=== PATIENT | male | born 1975 | race Two or more races ===

== ENCOUNTER 2024-09-23 17:53 | Emergency (ER) | payer MEDICAID ==
[~2024-09-23] VITALS: Ht 170.2 cm; Wt 99.5 kg
[2024-09-23 18:05] VITALS: BP 160/98; PULSE 122; RESP 14; O2SAT 98
[2024-09-24] MEDS ORDERED: CEPH500C PO (00:06)
[2024-09-24] MEDS ORDERED: ACET500T58 PO (00:06)
== END 2024-09-23 19:28 | disposition left against medical advice (07) ==
LOC: ER 17:53
DX: N48.89 Other specified disorders of penis (principal); Z53.21 Procedure and treatment not carried out due to patient leaving prior to being seen by health care provider

== ENCOUNTER 2024-09-23 22:32 | Emergency (ER) | payer MEDICAID ==
[~2024-09-23] VITALS: Ht 167.6 cm; Wt 98.5 kg
[2024-09-23 22:50] VITALS: BP 179/105; PULSE 85; RESP 18; O2SAT 98
[2024-09-23 23:17] LABS: Urine Bacteria None Seen /hpf (None Seen)
[2024-09-23 23:32] LABS: Urine Blood Negative /uL (Negative); Urine Clarity Clear (Clear); Urine Color Light-Yellow (Yellow); Urine Protein, UAD TRACE (Negative); Urine Specific Gravity 1.025 (1.001-1.035); Urine Squamous Epithelial Cell FEW /hpf (<5); Urine Urobilinogen Normal (Negative); Urine WBC 2 /HPF (0-3); Urine pH 5.5 (5.0-9.0)
[2024-09-24] MEDS ORDERED: ACET500T58 PO (00:06)
[2024-09-24] MEDS ORDERED: CEPH500C PO (00:06)
--- NOTE | 2024-09-24 00:06 | ED.PDOC ---
General HPI Comments 49-YEAR-OLD MALE PRESENTS TO ER WITH PENILE COMPLAINT X1 DAY. PATIENT REPORTS THAT HE IS UNCIRCUMCISED AND X1 DAY HE HAS BEEN EXPERIENCING REDNESS AND 10/10 BURNING/ITCHING TO PENIS AND FORESKIN. DENIES USE OF MEDICATIONS FOR CURRENT SYMPTOMS. STATES HE HAS NOT BEEN SEXUALLY ACTIVE IN 2 YEARS, DENYING ANY EXPOSURE TO STDS. DENIES FEVER, BODY ACHES, CHILLS, FURTHER SKIN CHANGES, BACK PAIN/FLANK PAIN, PENILE DISCHARGE, CHANGES IN URINATION OR ANY FURTHER SYMPTOMS/COMPLAINTS Chief Complaint: Penile Discharge Time Seen by MD: 22:58 Primary Care Provider: UNKNOWN Reviewed notes: Nurses Notes, Medications, Allergies Allergies: Coded Allergies: NO KNOWN ALLERGIES (Unverified , 09/23/24) Home Meds Active Scripts Cephalexin Monohydrate (Cephalexin) 500 Mg Cap, 1 CAP PO BID for 7 Days, #14 CAP 0 Refills Prov:MEHNAZ REEVES 09/24/24 Acetaminophen (Acetaminophen) 500 Mg Tab, 500 MG PO Q4HPRN, #30 TAB 0 Refills Prov:MEHNAZ REEVES 09/24/24 Information Source: Patient Mode of Arrival: Ambulatory Past Medical History PAST MEDICAL HISTORY: Denies Surgical History: Hernia Repair Family History Family History: Unknown Social History Smoker: Non-Smoker Alcohol: Occasionally Drugs: Denies Drug Use Lives In: Home Constitutional: denies: chills, diaphoresis, fatigue, fever, malaise, sweats, weakness, others EENTM: denies: blurred vision, double vision, ear bleeding, ear discharge, ear drainage, ear pain, ear ringing, eye pain, eye redness, hearing loss, mouth pain, mouth swelling, nasal discharge, nose bleeding, nose congestion, nose pain , photophobia, tearing, throat pain, throat swelling, voice changes, others Respiratory: denies: cough, hemoptysis, orthopnea, SOB at rest, shortness of breath, SOB with excertion, stridor, wheezing, others Cardiovascular: denies: chest pain, dizzy spells, diaphoresis, Dyspnea on exertion, edema, irregular heart beat, left arm pain, lightheadedness, palpitations, PND, syncope, others Gastrointestinal: denies: abdomen distended, abdominal pain, blood streaked bowels, constipated, diarrhea, dysphagia, difficulty swallowing, hematemesis, melena, nausea, poor appetite, poor fluid intake, rectal bleeding, rectal pain, vomiting, others Genitourinary: reports: others ( STATED IN HPI) Neurological: denies: dizziness, fainting, headache, left sided numbness, left sided weakness, numbness, paresthesia, pre-existing deficit, right sided numbness, right sided weakness, seizure, speech problems, tingling, tremors, weakness, others Musculoskeletal: denies: back pain, gout, joint pain, joint swelling, muscle pain, muscle stiffness, neck pain, others Integumetry: reports: others ( STATED IN HPI) Allergic/Immunocompromised: denies: Difficulty Healing, Frequent Infections, Hives, Itching, others Hematologic/Lymphatic: denies: anemia, blood clots, easy bleeding, easy bruising, swollen glands, others Endocrine: denies: excessive hunger, excessive sweating, excessive thirst, excessive urination, flushing, intolerance to cold, intolerance to heat, unexplained weight gain, unexplained weight loss, others Psychiatric: denies: anxiety, bipolar disorder, depression, hopeless, panic disorder, schizophrenia, sleepless, suicidal, others Physical Exam General Appearance: No Apparent Distress, Obese HEENT: PERRL/EOMI Neck: Full Range of Motion, Non-Tender, Normal Respiratory: Chest Non-Tender, Lungs Clear, No Accessory Muscle Use, No Respiratory Distress, Normal Breath Sounds Cardiovascular: No Murmur, No Gallop, Regular Rate/Rhythm Breast Exam: Deferred Gastrointestinal: Non Tender, No Pulsatile Mass, Soft Genitalia: Other (PATIENT UNCIRCUMCISED- MILD ERYTHEMA/TTP/MINIMAL SWELLING NOTED SURROUNDING FORESKIN AND GLANS PENIS. NO FURTHER SKIN CHANGES NOTED. REMAINDER OF GENITALIA EXAMINATION-UNREMARKABLE) Pelvic: Deferred Rectal: Deferred Extremities: Normal capillary refill, Normal range of motion Neurologic: Alert, No Motor Deficits, Normal Affect, Normal Mood, No Sensory Deficits Cerebellar Function: Normal Reflexes: Normal Skin: Dry, Warm Lymphatic: No Adenopathy Was a procedure done? Was a procedure done?: No Sedation Sedation?: No Differential Diagnosis Kidney stone (Female): N/A Penile/Scrotal: UTI, Urinary Retention Urinary Problem (Male): Urethritis, Urinary Retention X-Ray, Labs, Meds, VS Vital Signs Date Time Temp Pulse Resp B/P (MAP) Pulse Ox O2 Delivery O2 Flow Rate FiO2 2/3/25 22:50 97.0 85 18 179/105 (129) 98 Lab Test 09/23/24 22:54 Range/Units Urine Color Light-yellow Yellow Urine Clarity Clear Clear Urine pH 5.5 5.0-9.0 Urine Specific [place] 1.025 1.001-1.035 Urine Protein Trace H Negative Urine Ketones Trace Negative Urine Blood Negative Negative /uL Urine Nitrite Negative Negative Urine Bilirubin Negative Negative Urine Urobilinogen Normal Negative mg/dL Urine Leukocyte Esterase Negative Negative /uL Urine RBC <1 0 - 3 /hpf Urine Microscopic WBC 2 0-3 /HPF Urine Squamous Epithelial Cells Few <5 /hpf Urine Bacteria None seen None Seen /hpf Urine Glucose 3+ H Normal mg/dL Chlamydia trachomatis (JUANITA) Pending Neisseria gonorrhoeae (JUANITA) Pending URINALYSIS REVIEWED-URINE LEUKOCYTE ESTERASE NEGATIVE, URINE NITRITES NEGATIVE, URINE BLOOD NEGATIVE, URINE GLUCOSE 3+ IMPORTANCE OF PROPER HYGIENE DISCUSSED AND ADVISED CLOTRIMAZOLE 1% TOPICAL ORDERED, PATIENT EDUCATED ON PROPER USE/DOSAGE ADVISED TO FOLLOW UP WITH PCP IN 1-2 DAYS PATIENT VERBALIZED UNDERSTANDING AND AGREEABLE WITH CURRENT PLAN OF CARE ADVISED TO RETURN TO ER IMMEDIATELY IF SYMPTOMS WORSEN Time of 1ST Reevaluation: 23:40 Reevaluation 1ST: N/A Patient Education/Counseling: Diagnosis, Treatment, Prognosis, Need For Follow Up Family Education/Counseling: No Family Present Departure 1 Departure Time of Disposition: 00:02 Impression: Primary Impression: Balanoposthitis Disposition: HOME / SELF CARE / HOMELESS Condition: Stable e-Prescriptions Cephalexin Monohydrate (Cephalexin) 500 Mg Cap 1 CAP PO BID for 7 Days, #14 CAP 0 Refills Prov: MEHNAZ REEVES 09/24/24 Acetaminophen (Acetaminophen) 500 Mg Tab 500 MG PO Q4HPRN, #30 TAB 0 Refills Prov: MEHNAZ REEVES 09/24/24 Critical Care Note Critical Care Time?: No Stability Stability form required: No Heart Score Heart Score: Heart Score Response (Comments) Value History N/A 0 EKG N/A 0 Age N/A 0 Risk Factors N/A 0 Troponin N/A 0 Total 0 MEHNAZ REEVES Sep 24, 2024 00:06
[2024-09-24] MEDS: CLOTRIMAZOLE 1 % CREAM 15GM TOP ONE (00:12)
== END 2024-09-24 00:17 | disposition home or self-care (01) ==
LOC: ER 22:32
DX: N47.6 Balanoposthitis (principal); Z98.890 Other specified postprocedural states
CPT/HCPCS: 81001